=== PATIENT | male | born 1950 | race Caucasian/White ===

== ENCOUNTER 2021-04-20 08:44 | Inpatient (IN) | payer OTHER ==
[~2021-04-20] VITALS: Ht 177.8 cm; Wt 81.0 kg
[2021-04-20 10:06] LABS: HEMOGLOBIN 14.9 gm/dl (14.0-17.5); RED BLOOD COUNT 4.85 M/UL (4.20-5.50)
[2021-04-20 11:00] LABS: BUN/CREATININE RATIO 19 (0-10)
[2021-04-20] MEDS ORDERED: PRAVASTATIN SOD20 MG PO (18:41)
[2021-04-20] MEDS ORDERED: ZESTRIL40 MG PO (18:41)
[2021-04-20] MEDS ORDERED: FLOMAX 0.4 MG0.4 MG PO (18:41)
[2021-04-20] MEDS ORDERED: ZESTRIL20 MG PO (18:42)
[2021-04-20] MEDS ORDERED: VITAMIN B-121000 MC3 PO (18:42)
[2021-04-20] MEDS ORDERED: VITAMIN D325 MCG PO (18:42)
[2021-04-21 03:15] LABS: HEMOGLOBIN 13.5 gm/dl (14.0-17.5); RED BLOOD COUNT 4.43 M/UL (4.20-5.50); WHITE BLOOD COUNT 8.9 K/UL (4.5-11.0)
[2021-04-21 03:36] LABS: BUN/CREATININE RATIO 27 (0-10)
== END 2021-04-22 07:55 | disposition left against medical advice (07) | DRG 177 ==
LOC: ER1 08:44 → CDU 14:04 → PROG CARE 19:26
PROVIDERS: Student in an Organized Health Care Education/Training Program; ADMIT Internal Medicine
PROC: XW033E5 Introduction of Remdesivir Anti-infective into Peripheral Vein, Percutaneous Approach, New Technology Group 5 (ICD-10-PCS; principal; 2021-04-20)
PROC: 3E0333Z Introduction of Anti-inflammatory into Peripheral Vein, Percutaneous Approach (ICD-10-PCS; 2021-04-20)
PROC: 8E0ZXY6 Isolation (ICD-10-PCS; 2021-04-20)
PROC: 5A0945A Assistance with Respiratory Ventilation, 24-96 Consecutive Hours, High Flow/Velocity Cannula (ICD-10-PCS; 2021-04-20)
DX: U07.1 COVID-19 (principal); J12.82 Pneumonia due to coronavirus disease 2019; J96.01 Acute respiratory failure with hypoxia; N17.9 Acute kidney failure, unspecified; J98.11 Atelectasis; I12.9 Hypertensive chronic kidney disease with stage 1 through stage 4 chronic kidney disease, or unspecified chronic kidney disease; N18.9 Chronic kidney disease, unspecified; E78.5 Hyperlipidemia, unspecified; Z53.29 Procedure and treatment not carried out because of patient's decision for other reasons; Z90.49 Acquired absence of other specified parts of digestive tract; Z80.0 Family history of malignant neoplasm of digestive organs; Z81.8 Family history of other mental and behavioral disorders; Z82.3 Family history of stroke; Z82.49 Family history of ischemic heart disease and other diseases of the circulatory system; Z88.1 Allergy status to other antibiotic agents
CPT/HCPCS: 0240U; 36415; 36600; 71045; 80053; 82550; 82553; 82728; 82803; 83605; 83874; 83880; 84484; 85025; 85379; 86140; 87070; 87205; 93005; 94760; 99285; J1100; J1650; J7030; J7120; Q0177

== ENCOUNTER 2021-04-23 08:21 | Inpatient (IN) | payer OTHER ==
[~2021-04-23] VITALS: Ht 172.7 cm; Wt 82.1 kg
[~2021-04-23 08:21] MED LIST: FLOMAX 0.4 MG0.4 MG PO; PRAVASTATIN SOD20 MG PO; VITAMIN B-121000 MC3 PO; VITAMIN D325 MCG PO; ZESTRIL20 MG PO; ZESTRIL40 MG PO
[2021-04-23 08:44] LABS: HEMOGLOBIN 14.2 gm/dl (14.0-17.5); RED BLOOD COUNT 4.63 M/UL (4.20-5.50); WHITE BLOOD COUNT 7.1 K/UL (4.5-11.0)
[2021-04-23 09:39] LABS: BUN/CREATININE RATIO 18 (0-10)
[2021-04-24 03:52] LABS: HEMOGLOBIN 13.6 gm/dl (14.0-17.5); RED BLOOD COUNT 4.5 M/UL (4.20-5.50)
[2021-04-24 03:53] LABS: WHITE BLOOD COUNT 9.8 K/UL (4.5-11.0)
[2021-04-24 04:20] LABS: BUN/CREATININE RATIO 15 (0-10)
[2021-04-25 08:45] LABS: HEMOGLOBIN 14.9 gm/dl (14.0-17.5); RED BLOOD COUNT 4.8 M/UL (4.20-5.50)
[2021-04-25 08:46] LABS: WHITE BLOOD COUNT 20.2 K/UL (4.5-11.0)
[2021-04-25 09:12] LABS: BUN/CREATININE RATIO 26 (0-10)
[2021-04-26 08:54] LABS: HEMOGLOBIN 15.6 gm/dl (14.0-17.5); RED BLOOD COUNT 5.11 M/UL (4.20-5.50); WHITE BLOOD COUNT 22.1 K/UL (4.5-11.0)
[2021-04-26 09:16] LABS: BUN/CREATININE RATIO 36 (0-10)
[2021-04-27 04:56] LABS: HEMOGLOBIN 14.7 gm/dl (14.0-17.5); RED BLOOD COUNT 4.86 M/UL (4.20-5.50); WHITE BLOOD COUNT 26.4 K/UL (4.5-11.0)
[2021-04-28 08:27] LABS: HEMOGLOBIN 13.8 gm/dl (14.0-17.5); RED BLOOD COUNT 4.61 M/UL (4.20-5.50); WHITE BLOOD COUNT 22.8 K/UL (4.5-11.0)
[2021-04-28 08:58] LABS: BUN/CREATININE RATIO 48 (0-10)
[2021-04-28 17:20] LABS: BUN/CREATININE RATIO 43 (0-10)
[2021-04-29 04:12] LABS: HEMOGLOBIN 13.6 gm/dl (14.0-17.5); RED BLOOD COUNT 4.48 M/UL (4.20-5.50); WHITE BLOOD COUNT 18.2 K/UL (4.5-11.0)
[2021-04-29 04:27] LABS: BUN/CREATININE RATIO 54 (0-10)
--- NOTE | 2021-04-30 00:03 | NUR ---
LEVOPHED INFUSING AT 0.5MCG PER PROTOCOL; BP 105/42 MAP 57; HR 60
[2021-04-30 05:26] LABS: HEMOGLOBIN 13.2 gm/dl (14.0-17.5); RED BLOOD COUNT 4.39 M/UL (4.20-5.50); WHITE BLOOD COUNT 14.9 K/UL (4.5-11.0)
[2021-04-30 05:47] LABS: BUN/CREATININE RATIO 59 (0-10)
[2021-05-01 07:47] LABS: HEMOGLOBIN 12.2 gm/dl (14.0-17.5); RED BLOOD COUNT 4.16 M/UL (4.20-5.50)
[2021-05-01 08:06] LABS: BUN/CREATININE RATIO 57 (0-10)
[2021-05-02 05:17] LABS: HEMOGLOBIN 12.4 gm/dl (14.0-17.5); RED BLOOD COUNT 4.1 M/UL (4.20-5.50); WHITE BLOOD COUNT 14.1 K/UL (4.5-11.0)
[2021-05-02 06:12] LABS: BUN/CREATININE RATIO 74 (0-10)
[2021-05-03 03:58] LABS: HEMOGLOBIN 11.7 gm/dl (14.0-17.5); RED BLOOD COUNT 4.02 M/UL (4.20-5.50)
[2021-05-03 04:01] LABS: WHITE BLOOD COUNT 17.8 K/UL (4.5-11.0)
[2021-05-03 04:16] LABS: BUN/CREATININE RATIO 78 (0-10)
[2021-05-04 06:15] LABS: HEMOGLOBIN 10.7 gm/dl (14.0-17.5)
[2021-05-04 06:16] LABS: RED BLOOD COUNT 3.57 M/UL (4.20-5.50); WHITE BLOOD COUNT 13.1 K/UL (4.5-11.0)
[2021-05-04 06:30] LABS: BUN/CREATININE RATIO 75 (0-10)
--- NOTE | 2021-05-04 15:41 | NUR ---
PER MD REQUEST, SPOKE WITH CARDIOLOGY. OK TO DECREASE LOVENOX TO 40 BID. SEE ORDERS.
[2021-05-05 05:32] LABS: HEMOGLOBIN 10.6 gm/dl (14.0-17.5); RED BLOOD COUNT 3.53 M/UL (4.20-5.50); WHITE BLOOD COUNT 10.1 K/UL (4.5-11.0)
[2021-05-05 05:58] LABS: BUN/CREATININE RATIO 84 (0-10)
[2021-05-06 05:23] LABS: HEMOGLOBIN 10.4 gm/dl (14.0-17.5); RED BLOOD COUNT 3.45 M/UL (4.20-5.50)
[2021-05-06 05:25] LABS: BUN/CREATININE RATIO 66 (0-10)
[2021-05-07 05:05] LABS: HEMOGLOBIN 10.7 gm/dl (14.0-17.5); RED BLOOD COUNT 3.54 M/UL (4.20-5.50); WHITE BLOOD COUNT 10.2 K/UL (4.5-11.0)
[2021-05-07 05:31] LABS: BUN/CREATININE RATIO 58 (0-10)
[2021-05-08 08:12] LABS: HEMOGLOBIN 11.7 gm/dl (14.0-17.5)
[2021-05-08 08:13] LABS: RED BLOOD COUNT 3.97 M/UL (4.20-5.50); WHITE BLOOD COUNT 15.3 K/UL (4.5-11.0)
[2021-05-08 08:24] LABS: BUN/CREATININE RATIO 52 (0-10)
[2021-05-09 05:24] LABS: HEMOGLOBIN 11.5 gm/dl (14.0-17.5); RED BLOOD COUNT 3.79 M/UL (4.20-5.50); WHITE BLOOD COUNT 15.2 K/UL (4.5-11.0)
[2021-05-09 05:48] LABS: BUN/CREATININE RATIO 44 (0-10)
[2021-05-09 19:10] LABS: CMV QUANT DNA PCR (PLASMA) Negative (Negative)
[2021-05-10 05:06] LABS: HEMOGLOBIN 9.5 gm/dl (14.0-17.5); RED BLOOD COUNT 3.15 M/UL (4.20-5.50); WHITE BLOOD COUNT 9.2 K/UL (4.5-11.0)
[2021-05-10 05:24] LABS: BUN/CREATININE RATIO 41 (0-10)
[2021-05-11 07:37] LABS: RED BLOOD COUNT 3.01 M/UL (4.20-5.50)
[2021-05-11 07:53] LABS: BUN/CREATININE RATIO 48 (0-10)
[2021-05-11 16:14] LABS: ASPERGILLUS FLAVUS Negative (Neg:<1:1); ASPERGILLUS FUMIGATUS Negative (Neg:<1:1); ASPERGILLUS NIGER Negative (Neg:<1:1)
[2021-05-12 05:14] LABS: HEMOGLOBIN 10.3 gm/dl (14.0-17.5)
[2021-05-12 05:17] LABS: RED BLOOD COUNT 3.42 M/UL (4.20-5.50); WHITE BLOOD COUNT 10.2 K/UL (4.5-11.0)
[2021-05-12 05:38] LABS: BUN/CREATININE RATIO 53 (0-10)
[2021-05-13 05:38] LABS: HEMOGLOBIN 8.9 gm/dl (14.0-17.5); WHITE BLOOD COUNT 8.9 K/UL (4.5-11.0)
[2021-05-13 05:39] LABS: RED BLOOD COUNT 3.02 M/UL (4.20-5.50)
[2021-05-13 06:02] LABS: BUN/CREATININE RATIO 57 (0-10)
[2021-05-14 05:35] LABS: HEMOGLOBIN 8.8 gm/dl (14.0-17.5); RED BLOOD COUNT 2.91 M/UL (4.20-5.50); WHITE BLOOD COUNT 10.3 K/UL (4.5-11.0)
[2021-05-14 06:01] LABS: BUN/CREATININE RATIO 68 (0-10)
[2021-05-17 14:09] LABS: PNEUMO AB TYPE 1* 3.2 ug/mL (>1.3); PNEUMO AB TYPE 12 (12F)* 0.8 ug/mL (>1.3); PNEUMO AB TYPE 14* 3.6 ug/mL (>1.3); PNEUMO AB TYPE 19 (19F)* 2.4 ug/mL (>1.3); PNEUMO AB TYPE 23 (23F)* 4.6 ug/mL (>1.3); PNEUMO AB TYPE 26 (6B)* 6.3 ug/mL (>1.3); PNEUMO AB TYPE 3* 10.7 ug/mL (>1.3); PNEUMO AB TYPE 4* 1.7 ug/mL (>1.3); PNEUMO AB TYPE 51 (7F)* 9.5 ug/mL (>1.3); PNEUMO AB TYPE 56 (18C)* 6.2 ug/mL (>1.3); PNEUMO AB TYPE 57 (19A)* 21.1 ug/mL (>1.3); PNEUMO AB TYPE 68 (9V)* 8.2 ug/mL (>1.3)
== END 2021-05-14 10:45 | disposition expired | DRG 870 ==
LOC: ER1 08:21 → CCU 11:59 → CDU 11:59 → CCU 16:49
PROVIDERS: Internal Medicine; Internal Medicine Infectious Disease; Internal Medicine Pulmonary Disease; Student in an Organized Health Care Education/Training Program; ADMIT Internal Medicine
PROC: 3E033XZ Introduction of Vasopressor into Peripheral Vein, Percutaneous Approach (ICD-10-PCS; principal; 2021-04-23)
PROC: 3E0333Z Introduction of Anti-inflammatory into Peripheral Vein, Percutaneous Approach (ICD-10-PCS; 2021-04-23)
PROC: XW033H5 Introduction of Tocilizumab into Peripheral Vein, Percutaneous Approach, New Technology Group 5 (ICD-10-PCS; 2021-04-23)
PROC: 5A0935A Assistance with Respiratory Ventilation, Less than 24 Consecutive Hours, High Flow/Velocity Cannula (ICD-10-PCS; 2021-04-23)
PROC: 5A09457 Assistance with Respiratory Ventilation, 24-96 Consecutive Hours, Continuous Positive Airway Pressure (ICD-10-PCS; 2021-04-23)
PROC: XW033E5 Introduction of Remdesivir Anti-infective into Peripheral Vein, Percutaneous Approach, New Technology Group 5 (ICD-10-PCS; 2021-04-24)
PROC: B24BZZ4 Ultrasonography of Heart with Aorta, Transesophageal (ICD-10-PCS; 2021-04-25)
PROC: 5A1955Z Respiratory Ventilation, Greater than 96 Consecutive Hours (ICD-10-PCS; 2021-04-26)
PROC: 02HV33Z Insertion of Infusion Device into Superior Vena Cava, Percutaneous Approach (ICD-10-PCS; 2021-04-26)
PROC: 0BH17EZ Insertion of Endotracheal Airway into Trachea, Via Natural or Artificial Opening (ICD-10-PCS; 2021-04-26)
PROC: 8E0ZXY6 Isolation (ICD-10-PCS; 2021-05-06)
PROC: 0DH63UZ Insertion of Feeding Device into Stomach, Percutaneous Approach (ICD-10-PCS; 2021-05-11)
DX: A41.89 Other specified sepsis (principal); U07.1 COVID-19; J12.82 Pneumonia due to coronavirus disease 2019; Z66 Do not resuscitate; Z51.5 Encounter for palliative care; R65.21 Severe sepsis with septic shock; J80 Acute respiratory distress syndrome; I21.A1 Myocardial infarction type 2; J15.9 Unspecified bacterial pneumonia; N17.9 Acute kidney failure, unspecified; E87.4 Mixed disorder of acid-base balance; E87.0 Hyperosmolality and hypernatremia; R31.9 Hematuria, unspecified; R73.9 Hyperglycemia, unspecified; E78.5 Hyperlipidemia, unspecified; I10 Essential (primary) hypertension; E87.6 Hypokalemia; T38.0X5A Adverse effect of glucocorticoids and synthetic analogues, initial encounter; F03.90 Unspecified dementia, unspecified severity, without behavioral disturbance, psychotic disturbance, mood disturbance, and anxiety; M19.90 Unspecified osteoarthritis, unspecified site; N40.0 Benign prostatic hyperplasia without lower urinary tract symptoms; F41.9 Anxiety disorder, unspecified; H91.13 Presbycusis, bilateral; E86.9 Volume depletion, unspecified; D69.6 Thrombocytopenia, unspecified; E87.8 Other disorders of electrolyte and fluid balance, not elsewhere classified; I08.2 Rheumatic disorders of both aortic and tricuspid valves; E03.9 Hypothyroidism, unspecified; E87.5 Hyperkalemia; I95.2 Hypotension due to drugs; Z87.01 Personal history of pneumonia (recurrent); Z90.49 Acquired absence of other specified parts of digestive tract; Z80.0 Family history of malignant neoplasm of digestive organs; Z82.49 Family history of ischemic heart disease and other diseases of the circulatory system; Z82.0 Family history of epilepsy and other diseases of the nervous system; Z91.14 Patient's other noncompliance with medication regimen; Z88.1 Allergy status to other antibiotic agents; Z86.16 Personal history of COVID-19; Z79.4 Long term (current) use of insulin; Z82.3 Family history of stroke
CPT/HCPCS: ECHO; 31500; 36415; 36600; 71045; 74018; 80048; 80053; 81001; 82550; 82553; 82728; 82803; 82962; 83605; 83615; 83735; 83880; 84100; 84132; 84484; 85025; 85027; 85379; 85384; 85610; 85652; 86140; 86606; 86612; 87015; 87040; 87070; 87077; 87081; 87086; 87116; 87186; 87205; 87206; 87252; 87497; 87799; 93005; 93306; 94002; 94003; 94640; 94660; 94664; 94760; 96365; 96366; 96375; 99285; A6212; J0330; J0360; J0456; J0610; J1100; J1205; J1335; J1650; J1940; J2020; J2185; J2250; J2704; J3370; J7030; J7040; J7050; J7070; Q9967; U0002